=== PATIENT | male | born 1970 | race American Indian/Alaskan Native ===

== ENCOUNTER 2017-07-14 04:26 | Emergency (ER) | payer MEDICARE ==
[2017-07-14 05:01] LABS: Hematocrit 36.3 % (35.5-45.6); Hemoglobin 12.6 gm/dl (11.8-15.2); Mean Corpuscular HGB Conc 35 % (32-34); Mean Corpuscular Hemoglobin 32 pg (28-32); Mean Corpuscular Volume 93 fl (84-94); Platelet Count 185 K/mm3 (140-440); Red Blood Count 3.89 M/mm3 (3.65-5.03); Red Cell Distribution Width 14.3 % (13.2-15.2); White Blood Count 8.5 K/mm3 (4.5-11.0)
[2017-07-14 05:16] LABS: Anion Gap 20 mmol/L; BUN/Creatinine Ratio 22; Blood Urea Nitrogen 26 mg/dL (9-20); Calcium 9.2 mg/dL (8.4-10.2); Carbon Dioxide 21 mmol/L (22-30); Glucose 109 mg/dL (75-100); Potassium 4.2 mmol/L (3.6-5.0); Sodium 140 mmol/L (137-145)
[2017-07-14 05:20] LABS: Bilirubin,Urine Negative (Negative); Ketones,Urine Negative (Negative)
[2017-07-14 05:21] LABS: Blood,Urine Small (Negative); Leukocyte Esterase,Urine Negative (Negative); Nitrite,Urine Negative (Negative); Protein,Urine <15 mg/dL mg/dL (Negative); Urobilinogen,Urine < 2.0 mg/dL (<2.0)
[2017-07-14 05:27] LABS: Mucus,Urine Few /HPF; RBC,Urine < 1.0 /HPF (0.0-6.0); WBC,Urine < 1.0 /HPF (0.0-6.0)
[2017-07-14] MEDS ORDERED: NORCO 5/325 PO ONE (05:28)
--- NOTE | 2017-07-14 05:36 | XRay Report ---
FINAL REPORT PROCEDURE: XR CHEST 1V AP TECHNIQUE: Chest radiograph anteroposterior view. CPT 94827 HISTORY: chest pain COMPARISON: No prior studies are available for comparison. FINDINGS: Heart: Normal. Mediastinum/Vessels: Normal. Lungs/Pleural space: Lungs are clear. There are no infiltrates, effusions or pneumothoraces.. Bony thorax: No acute osseous abnormality. Life support devices: None. IMPRESSION: No acute cardiopulmonary abnormality.
[2017-07-14 05:46] LABS: Basophils % (Manual) 0 % (0.0-1.8); Blastocytes % (Manual) 0 %; Eosinophils % (Manual) 0 % (0.0-4.3)
[2017-07-14 05:47] LABS: Anisocytosis 1+; Diff Status Complete; Elliptocytes Few; Ovalocytes 1+
--- NOTE | 2017-07-14 05:54 | Emergency Department Report ---
HPI - General Chief Complaint: Chest Pain Time Seen by Provider: 07/14/17 05:15 - HPI HPI: The patient's a 47-year-old male presents for evaluation of right-sided chest and abdominal pain. The patient reports right-sided chest pain and right upper quadrant abdominal pain since 4 AM, one hour prior to arrival, constant since onset, 9/10 severity, crampy in quality, and is exacerbated with movement. The patient denies fever, chills, night sweats, trauma to the chest or abdomen, cough, dyspnea, hemoptysis, syncope, diarrhea, blood in the stool, dark tarry stool, dysuria, hematuria, flank pain. ED Past Medical Hx - Past Medical History Previous Medical History?: No - Surgical History Past Surgical History?: No - Social History Smoking Status: Former Smoker Substance Use Type: None - Medications Home Medications: Home Medications Medication Instructions Recorded Confirmed Last Taken Type Acetaminophen/Codeine [Tylenol #3] 1 tab PO Q6H PRN #10 tab 07/14/17 Unknown Rx Ibuprofen [Motrin] 800 mg PO Q8HR PRN #15 tablet 07/14/17 Unknown Rx Mirtazapine [Remeron] 15 mg PO QHS 07/14/17 07/14/17 07/13/17 History PARoxetine [Paxil] 20 mg PO DAILY 07/14/17 07/14/17 07/13/17 History ED Review of Systems ROS: Stated complaint: CHEST PAIN FEVER Other details as noted in HPI Constitutional: denies: fever ENT: denies: throat or neck pain Respiratory: denies: cough, shortness of breath Cardiovascular: reports chest pain Endocrine: denies unexplained weight loss or gain Gastrointestinal: reports abdominal pain, nausea Genitourinary: denies: dysuria Musculoskeletal: denies: leg swelling Skin: denies: rash Neurological: denies: headache Hematological/Lymphatic: denies: easy bleeding or easy bruising Psych: denies sadness or hopelessness Physical Exam - Physical Exam Vital Signs: Vital Signs 07/14/17 04:30 Temperature 98.7 F Pulse Rate 86 Respiratory 18 Rate Blood Pressure 114/80 O2 Sat by Pulse 98 Oximetry Physical Exam: General: well-nourished, well-developed, no acute distress Head: Normocephalic, atraumatic Eyes: normal sclera ENT: Mucous membranes are pink and moist Neck: trachea midline, neck supple, No neck stiffness, no cervical adenopathy Respiratory: Breath sounds equal bilaterally, no wheezing, rales, or rhonchi Cardio: S1 and S2 present, no murmurs, rubs, gallops, capillary refill is brisk Abdomen: Normoactive bowel sounds, soft abdomen, right upper quadrant tenderness present, no rigidity, no guarding or rebound tenderness Chest WALL/Back: Right lower anterior chest wall tenderness present, no ecchymosis, purpura, redness, swelling, or crepitus to the chest wall, no CVA tenderness with percussion Musc: No pitting edema Skin: No rash Neuro: no facial drooping, normal speech Psych: Normal affect ED Course Vital Signs 07/14/17 04:30 Temperature 98.7 F Pulse Rate 86 Respiratory 18 Rate Blood Pressure 114/80 O2 Sat by Pulse 98 Oximetry ED Medical Decision Making - Lab Data Result diagrams: 07/14/17 04:37 07/14/17 04:37 - Medical Decision Making The patient was seen and examined by myself. The patient is placed on a monitoring manager and continuous pulse ox. On initial evaluation, the patient was found to be in no distress. The patient given a tablet of [place] for his pain. EKG was negative for findings suggestive of acute cardiac infarct. Labs and imaging are obtained. Chest x-ray is negative for pneumothorax, focal consolidation, pulmonary vascular congestion, pleural effusion, or other obvious acute cardiopulmonary disease process. Lab results were non-concerning including levels of troponin, WBC, hemoglobin, hematocrit, electrolytes, renal function, and LFTs. The patient was reevaluated and reported that their symptoms were markedly improved. As the patient has a ALFRED risk score less than 2, and a well's score less than 2, the patient is at low risk of ACS or pulmonary emboli etiology of their symptoms. The patient is stable for discharge with outpatient follow-up. The patient is given follow-up and return instructions. The patient expressed understanding and agreed with the plan. The patient is discharged in stable condition. Critical care attestation.: If time is entered above; I have spent that time in minutes in the direct care of this critically ill patient, excluding procedure time. ED Disposition Clinical Impression: Acute chest pain, Abdominal pain, acute, right upper quadrant Disposition: [id number] TO HOME OR SELFCARE Is pt being admited?: No Does the pt Need Aspirin: No Condition: Stable Instructions: Chest Pain (ED), Costochondritis (ED), Acute Abdominal Pain (ED) Prescriptions: Acetaminophen/Codeine [Tylenol #3] 1 tab PO Q6H PRN #10 tab PRN Reason: Pain Ibuprofen [Motrin] 800 mg PO Q8HR PRN #15 tablet PRN Reason: Pain Referrals: PRIMARY CARE, [Primary Care Provider] - 3-5 Days Time of Disposition: 05:51
[2017-07-14 06:16] LABS: Alanine Aminotransferase 72 units/L (7-56); Albumin 3.8 g/dL (3.9-5); Albumin/Globulin Ratio 1.7 %; Alkaline Phosphatase 62 units/L (35-129)
[2017-07-14 06:29] LABS: Bilirubin,Direct < 0.2 mg/dL (0-0.2)
--- NOTE | 2017-07-14 06:32 | XRay Report ---
FINAL REPORT PROCEDURE: XR RIBS UNILAT 2V RT TECHNIQUE: RIGHT rib radiographs, 3 views of the ribs, including PA chest. HISTORY: anterior right lower rib pain COMPARISON: No prior studies are available for comparison. FINDINGS: Heart: Normal. Mediastinum/Vessels: Normal. Lungs: Normal. Pleural space: Normal. Pneumothorax: None. Bony thorax/ribs: No significant abnormality. IMPRESSION: Normal Examination.
[2017-07-14 10:27] VITALS: BP 120/72
== END 2017-07-14 10:24 | disposition home or self-care (01) ==
LOC: ED 04:26
DX: R10.31 Right lower quadrant pain (principal); R07.9 Chest pain, unspecified
CPT/HCPCS: 36415; 71010; 80048; 80074; 81001; 84484; 85007; 85025; 93005; 93010